=== PATIENT | female | born 1995 | race Caucasian/White ===

== ENCOUNTER 2016-10-23 15:21 | Emergency (ER) | payer SELFPAY ==
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
[2016-10-23 17:48] LABS: CHLORIDE,CL 106 mmol/L (98-110); SODIUM,NA 139 mmol/L (136-146)
[2016-10-23 19:35] VITALS: BP 123/79
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
== END 2016-10-23 19:33 | disposition home or self-care (01) ==
LOC: MW.ED 15:21
DX: S02.32XA Fracture of orbital floor, left side, initial encounter for closed fracture (principal); S00.03XA Contusion of scalp, initial encounter; F17.210 Nicotine dependence, cigarettes, uncomplicated; Y04.2XXA Assault by strike against or bumped into by another person, initial encounter
CPT/HCPCS: 36415; 70450; 70450-26; 70486; 70486-26; 71100-26-LT; 71100-LT; 80053; 81001; 81025; 85025; 99283; 99284-25